=== PATIENT | female | born 2000 | race Caucasian/White ===

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

== ENCOUNTER 2020-07-17 12:22 | Emergency (ER) | payer MEDICAID ==
[~2020-07-17] VITALS: Ht 162.6 cm; Wt 87.3 kg
[~2020-07-17 12:22] MED LIST changes: +BIRTH CONTROL PILLS; +IBUPROFEN800 MG PO; +PROVERA10 MG PO; +XANAX0.5 MG PO
[2020-07-17 12:26] VITALS: BP 137/90; Ht 162.6 cm; Wt 87.3 kg
[2020-07-17] MEDS ORDERED: TEMOVATE30 GM TOPICAL (15:36)
[2020-07-17] MEDS ORDERED: VISTARIL25 MG PO (15:36)
[2020-07-17] MEDS ORDERED: MEDROL32 MG PO (15:36)
== END 2020-07-17 16:04 | disposition home or self-care (01) ==
LOC: D.ER 12:22
DX: L25.9 Unspecified contact dermatitis, unspecified cause (principal); I10 Essential (primary) hypertension; J45.909 Unspecified asthma, uncomplicated